=== PATIENT | male | born 2000 | race Caucasian/White ===

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

== ENCOUNTER 2024-02-25 19:10 | Inpatient (IN) ==
[2024-02-25 20:20] LABS: ABS Basophils 0.1 10^3/uL (0.0-0.1); ABS Eosinophils 0.1 10^3/uL (0.0-0.5); ABS Lymphocytes 2.6 10^3/uL (1.0-4.8); ABS Monocytes 0.5 10^3/uL (0.0-1.1); ABS Neutrophils 6.2 10^3/uL (1.5-7.6); ABS Nucleated RBC 0.01 10^3/ul; Eosinophil % 1.3 %; Hematocrit 43.5 % (38-53); Hemoglobin 14.9 g/dL (13.2-16.3); Lymphocyte % 27.3 %; Mean Corpuscular Hgb Conc 34.2 g/dL (31-36); Mean Corpuscular Volume 87.8 fL (80-97); Mean Platelet Volume 7.7 fL (7.5-11.2); Nucleated Red Blood Cells % 0.2 %/100WBC (0.0-0.8); Platelet Count 320 10^3/uL (150-450); Red Blood Count 4.96 10^6/uL (4.06-5.63); Red Cell Distribution Width 13.5 % (12-17); White Blood Count 9.5 10^3/uL (3.6-10.2)
[2024-02-25 20:21] LABS: Urine Appearance Clear; Urine Bilirubin Negative (Negative); Urine Blood Negative (Negative); Urine Color Colorless; Urine Glucose Negative (Negative); Urine Ketones Negative (Negative); Urine Nitrite Negative (Negative); Urine Protein Negative (Negative); Urine Specific Gravity 1.005 (1.002-1.030); Urine Urobilinogen Negative (Negative); Urine pH 5.5 (5.0-8.0)
[2024-02-25 20:39] LABS: Urine Benzodiazepine Screen None Detected (None Detect); Urine Cannabinoids Screen Presumptive Positive (None Detect); Urine Opiates Screen None Detected (None Detect)
[2024-02-25 20:55] LABS: ALT 16 U/L (7-52); AST 23 U/L (13-39); Acetaminophen < 15 mcg/mL; Albumin 5.1 g/dL (3.2-5.2); Albumin/Globulin Ratio 2.1 (1-3); Alcohol, S 32 mg/dL (<13); Alkaline Phosphatase 58 U/L (35-149); Anion Gap 13 mmol/L (2-16); Blood Urea Nitrogen 15 mg/dL (6-24); CO2 Carbon Dioxide 22 mmol/L (22-32); Calcium 9.9 mg/dL (8.6-10.3); Chloride 107 mmol/L (101-111); Creatinine, Serum 0.96 mg/dL (0.67-1.17); Globulin 2.4 g/dL (2-4); Glucose 85 mg/dL (70-100); Potassium 4.1 mmol/L (3.5-5.0); Salicylate < 2.50 mg/dL (<30); Sodium 142 mmol/L (135-145); Total Bilirubin 0.6 mg/dL (0.2-1.0); Total Protein 7.5 g/dL (6.4-8.9); eGFR CKD-EPI 115.3 (>60)
[2024-02-25 21:09] LABS: TSH Ultra Thyroid Stim Horm 0.89 mcIU/mL (0.34-5.60)
[2024-02-26] MEDS ORDERED: Al Hydrox/Mg Hydrox/Simet LIQ 30 ML UDC PO PRN (02:32)
[2024-02-26] MEDS ORDERED: Nicotine GUM 2MG FRUIT FLAVOR PO PRN (03:00)
[2024-02-26] MEDS: Vitamin THERAPEUTIC TAB PO SCH (09:47)
[2024-02-27 10:00] VITALS: BP 122/58
== END 2024-02-27 11:00 | disposition home or self-care (01) | DRG 758 ==
LOC: ED 19:10 → BSU 02-26 01:30
PROVIDERS: ADMIT Psychiatry & Neurology Psychiatry; ATTEND Psychiatry & Neurology Psychiatry